=== PATIENT | female | born 1970 | race Caucasian/White ===

== ENCOUNTER 2022-11-22 08:09 | Outpatient (AMB) | payer BC, SELFPAY ==
--- NOTE | 2022-11-22 08:16 | A.OFFVIS_ITS ---
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 Required: No Allergies amoxicillin [Augmentin] Allergy (Unknown, Verified 11/30/15 00:00) hives clavulanic acid [Augmentin] Allergy (Unknown, Verified 11/30/15 00:00) hives codeine Allergy (Unknown, Verified 11/30/15 00:00) vomiting doxicycline Adverse Reaction (Intermediate, Uncoded 11/22/22 08:17) vomiting Medication List - Last Reconciled 11/22/22 by Isabela Turcios MD atenolol-chlorthalidone 50-25 mg 1 tab PO DAILY betamethasone dipropionate 0.05% 1 appl topical BID cholecalciferol (vitamin D3) 250 mcg PO .once a month duloxetine 60 mg PO DAILY ibuprofen 800 mg PO TID lorazepam 0.5 mg PO DAILY PRN meloxicam 15 mg PO DAILY omeprazole 20 mg PO DAILY PRN vitamin B complex (B Complex-Vitamin B12 tablet) 1 tab PO DAILY zolpidem ER 12.5 mg PO BEDTIME PRN HPI HPI Comments History of Present Illness Details 52y/o right handed female comes for eval uation of pain and weakness in neck,shoulders, bilateral upper extremities.she has h/o psoriatic arthritis and has been having on and off joint pains for over 30 years but for the pats 18 months she has noticed increased weakness and pain in her UE and shoulders. 18 months she started having numbness and tingling in her fingers more at night and when she woke up in the morning.she denies any shooting pains form the neck down.It was initially in her left hand but now bilateral. she denies back pain or LE weakness. she denies any urinary incontinence of balance issues. she has poor sleep, has a diagnosis of sleep apnea , tried on CPAP- in 2017. she could not tolerate CPAP so she stopped. she has gained 30-40 lbs in the past 18 mths. she has loud snoring, frequent arousals,witnessed apneas. [facility] Medical History Hypersomnia Snoring Cervical spondylosis Numbness and tingling in both hands Weakness Obesity (BMI 30-39.9) HTN (hypertension) Psoriatic arthritis Psoriasis Obstructive sleep apnea GERD (gastroesophageal reflux disease) Smoker Family History Mother COPD (chronic obstructive pulmonary disease) Diabetes Heart disease Father Diabetes Pulmonary fibrosis Social History Alcohol intake: current Patient Tobacco Use Status: Current everyday Tobacco user Review of Systems Const Reports daytime sleepiness, Reports difficulty sleeping, Reports snoring and Reports weight gain ENT Reports neck pain Resp Reports snoring Musc Reports arthralgias, Reports muscle weakness, Reports neck pain, Reports numbness, Reports stiffness and Reports tingling Neuro Reports numbness and Reports tingling Psych Reports no additional complaints Physical Exam Vital Signs: Last Vital Signs Pulse 75 11/22/22 08:26 BP 110/76 11/22/22 08:26 Pulse Ox 97 11/22/22 08:26 Oxygen Delivery Method Room Air 11/22/22 08:26 BMI result Body Mass Index 47.7 Const General: cooperative Nutritional Appearance: obese Orientation/consciousness: patient oriented x3 Eyes Pupils: Equal, round and reactive pupils present Neuro Other: had difficulty with mitch hand grasp , weakness of proximal UE General: patient oriented x3 and moves all extremities Cranial nerves: Yes Facial sensation intact/muscles of mastication intact, Yes Equal, round and reactive pupils present, Yes Bilaterally intact EOM present, Yes Nystagmus not present, Yes Normal facial strength present, Yes Midline tongue present and Yes Symmetric palate elevation present Cognition (Neuro): normal cognition Gait exam (Neuro): Normal gait present Motor exam (neuro): Normal motor muscle tone present throughout Deep tendon reflexes (DTR's): Right triceps reflex intensity grade: 3+, Left triceps reflex intensity grade: 3+, Rt Biceps (C5, C6): 3+, Left biceps reflex intensity grade: 3+, Right brachioradialis reflex intensity grade: 3+, Left brachioradialis reflex intensity grade: 3+, Right patellar reflex intensity grade: 3+ and Left patellar reflex intensity grade: 3+ Coordination: [id number]-[id number] test normal Psych Appearance: grossly normal Assessment & Plan Assessment & Plan (1) Numbness and tingling in both hands: Code(s): R20.0 - Anesthesia of skin; R20.2 - Paresthesia of skin (2) Weakness: Code(s): R53.1 - Weakness (3) Cervical spondylosis: Code(s): M47.812 - Spondylosis without myelopathy or radiculopathy, cervical region (4) Snoring: Code(s): R06.83 - Snoring Plan EMG NCS mitch hands to r/o compression neuropathy C spine MRI Sleep study Rheumatology evaluation OT for hands suggested wrist splints. Orders: Orders PT Evaluation and Treatment Today R53.1 - Weakness OT Evaluation and Treatment Today R53.1 - Weakness NE electromyogram (EMG) Today R20.0 - Anesthesia of skin, R20.2 - Paresthesia of skin MR cervical spine wo con Today M47.812 - Spondylosis without myelopathy or radiculopathy, cervical region RT PSG in-lab sleep study Today G47.10 - Hypersomnia, unspecified, R06.83 - Snoring Referrals Rheumatology Referral L40.50 - Arthropathic psoriasis, unspecified Coding Level of Care Code New Pt Level 4 (66548) Diagnoses Numbness and tingling in both hands R20.0; R20.2 Weakness R53.1 Cervical spondylosis M47.812 Snoring R06.83
[2022-11-22 08:26] VITALS: BP 110/76; PULSE 75; O2SAT 97; BMI 47.7
== END 2022-11-22 08:49 | disposition home or self-care (01) ==
PROVIDERS: Visit Provider Psychiatry & Neurology Neurology
DX: R20.0 Anesthesia of skin (principal); R20.2 Paresthesia of skin; R53.1 Weakness; M47.812 Spondylosis without myelopathy or radiculopathy, cervical region; R06.83 Snoring
CPT/HCPCS: 99204

== ENCOUNTER → 2022-11-22 08:09 | Outpatient (BNVA) | payer BC, SELFPAY | PROVIDERS: Visit Provider Psychiatry & Neurology Neurology ==

== ENCOUNTER 2022-12-15 08:04 | Outpatient (REF) | payer BC, SELFPAY ==
--- NOTE | 2022-12-15 08:08 | EMG_ITS ---
Bilateral median and ulnar motor and sensory studies were performed. Bilateral radial and sensory studies were performed and paraspinal muscles were tested with a needle. IMPRESSION: 1. Yuim-tb-fiehglam bilateral median neuropathy across carpal tunnel. 2. Bilateral radial sensory neuropathy. MD DIXON Trejo/LIZZETH / [id number]
== END 2022-12-15 08:05 | disposition home or self-care (01) ==
LOC: HO.NEURO 08:04
PROVIDERS: PCP Internal Medicine; Visit Provider Psychiatry & Neurology Neurology
DX: R20.0 Anesthesia of skin (principal); R20.2 Paresthesia of skin
CPT/HCPCS: 95886; 95911

== ENCOUNTER 2023-01-02 18:21 | Outpatient (REF) | payer BC, SELFPAY ==
--- NOTE | ~2023-01-02 | MR_ITS ---
EXAMINATION: MR CERVICAL SPINE WITHOUT CONTRAST CLINICAL INFORMATION: Spondylosis, bilateral arm weakness, neck pain COMPARISON: None available. TECHNIQUE: MRI of the cervical spine was obtained using routine sequences without contrast. FINDINGS: Feeding of the normal cervical lordosis. Trace anterolisthesis of C2-C3 and C3-C4 with grade 1 anterolisthesis of C7-T1, T1-T2, and T2-T3. Cervical vertebral body heights are maintained. Mild superior endplate height loss at T2 and T3. No expansile or destructive osseous lesion. Focal dilatation of the central canal at the level of C6-C7 measuring up to 2 mm in maximal diameter. C2-C3: Facet arthropathy. The spinal canal and neural foramen are patent. C3-C4: Mild uncovertebral spurring without significant spinal canal or neural foraminal stenosis. C4-C5: Disc osteophyte complex indents the ventral thecal sac with mild canal stenosis. Uncovertebral and facet arthropathy contributes to moderate right and mild left neural foraminal stenosis. C5-C6: Disc osteophyte complex indents the ventral thecal sac without significant associated spinal canal stenosis. There is mild to moderate bilateral neural foraminal stenosis secondary to uncovertebral and facet arthropathy C6-C7: Small disc osteophyte complex without significant spinal canal stenosis. The neural foramen remain patent. C7-T1: No significant spinal canal or neural foraminal stenosis. Facet arthropathy. MR/MR cervical spine wo con IMPRESSION: Straightening of the normal cervical lordosis with multilevel degenerative changes as described above. There is up to moderate right neural foraminal stenosis at C4-C5. No high-grade spinal canal stenosis. Short segment syrinx at the level of C6-C7. Attention on follow-up is recommended to monitor stability.
== END 2023-01-02 18:22 | disposition home or self-care (01) ==
LOC: HO.MRI 18:21
PROVIDERS: PCP Internal Medicine; Visit Provider Psychiatry & Neurology Neurology
DX: M47.812 Spondylosis without myelopathy or radiculopathy, cervical region (principal)
CPT/HCPCS: 72141

== ENCOUNTER 2023-01-11 14:29 | Outpatient (AMB) | payer BC, SELFPAY ==
--- NOTE | 2023-01-11 14:30 | MHC.OFFVIS ---
Intake Vital Signs 01/11/23 14:32 Height 5 ft 3 in Weight 274 lb BMI 48.5 BP 124/78 Blood Pressure Location Lt brachial Position Sitting Respiration 16 Pulse 70 Pulse Source Pulse Oximeter Pulse Oximetry (%) 95 Oxygen Delivery Method Room Air Intake Visit Reasons: 7 wks f/u Chronic Pain/Neuropata - Conf Intake Note: Pt presents to the office for a 2 month follow for neuropathy. She reports no improvement since her last visit. She c/o constant pain, worse at night. She reports it used to go away, but now its flared all day long. 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 MRI c spine shows multilevel deg changes and a small syrinx but no canal stenosis EMG showed mitch median neuropathy . mitch radial nerve sensory neuropathy . she did not have sleep study - home sleep test was recommended - she declined. Previous history-she has h/o psoriatic arthritis and has been having on and off joint pains for over 30 years but for the past 18 months she has noticed increased weakness and pain in her UE and shoulders. 18 months she started having numbness and tingling in her fingers more at night and when she woke up in the morning.she denies any shooting pains form the neck down.It was initially in her left hand but now bilateral. she denies back pain or LE weakness. she denies any urinary incontinence of balance issues. she has poor sleep, has a diagnosis of sleep apnea , tried on CPAP- in 2017. she could not tolerate CPAP so she stopped. she has gained 30-40 lbs in the past 18 mths. she has loud snoring, frequent arousals,witnessed apneas. PFSH Medical History Carpal tunnel syndrome Hypersomnia Snoring Cervical spondylosis Numbness and tingling in both hands Weakness Obesity (BMI 30-39.9) HTN (hypertension) Psoriatic arthritis Psoriasis Obstructive sleep apnea GERD (gastroesophageal reflux disease) Smoker Family History Mother COPD (chronic obstructive pulmonary disease) Diabetes Heart disease Father Diabetes Pulmonary fibrosis Social History Alcohol intake: current Patient Tobacco Use Status: Current everyday Tobacco user Physical Exam Vital Signs: Last Vital Signs Pulse 70 01/11/23 14:32 Resp 16 01/11/23 14:32 BP 124/78 01/11/23 14:32 Pulse Ox 95 01/11/23 14:32 Oxygen Delivery Method Room Air 01/11/23 14:32 BMI result Body Mass Index 48.5 Const General: cooperative Nutritional Appearance: obese Orientation/consciousness: patient oriented x3 Eyes Pupils: Equal, round and reactive pupils present Neuro Other: had difficulty with mitch hand grasp , weakness of proximal UE General: patient oriented x3 and moves all extremities Cranial nerves: Yes Facial sensation intact/muscles of mastication intact, Yes Equal, round and reactive pupils present, Yes Bilaterally intact EOM present, Yes Nystagmus not present, Yes Normal facial strength present, Yes Midline tongue present and Yes Symmetric palate elevation present Cognition (Neuro): normal cognition Gait exam (Neuro): Normal gait present Motor exam (neuro): Normal motor muscle tone present throughout Coordination: yoobxf-as-fgtm test normal Psych Appearance: grossly normal Assessment & Plan Assessment & Plan (1) Carpal tunnel syndrome: Code(s): G56.00 - Carpal tunnel syndrome, unspecified upper limb (2) Cervical spondylosis: Code(s): M47.812 - Spondylosis without myelopathy or radiculopathy, cervical region (3) Obstructive sleep apnea: Comment: declines Home sleep test, did not tolerate CPAP , not a candidate for INSPIRE Code(s): G47.33 - Obstructive sleep apnea (adult) (pediatric) Plan I will refer her to Hand surgery for CTS management. Rheumatology follow up. Pain management Decline sleep study Orders: Referrals Hand Surgery Referral G56.00 - Carpal tunnel syndrome, unspecified upper limb Pain Management Referral L40.50 - Arthropathic psoriasis, unspecified, M47.812 - Spondylosis without myelopathy or radiculopathy, cervical region Coding Level of Care Code Est Pt Level 4 (47174) Diagnoses Carpal tunnel syndrome G56.00 Cervical spondylosis M47.812 Obstructive sleep apnea G47.33
[2023-01-11 14:32] VITALS: BP 124/78; PULSE 70; RESP 16; O2SAT 95; BMI 48.5
== END 2023-01-11 15:20 | disposition home or self-care (01) ==
PROVIDERS: PCP Internal Medicine; Visit Provider Psychiatry & Neurology Neurology
DX: G56.00 Carpal tunnel syndrome, unspecified upper limb (principal); M47.812 Spondylosis without myelopathy or radiculopathy, cervical region; G47.33 Obstructive sleep apnea (adult) (pediatric)
CPT/HCPCS: 99214

== ENCOUNTER → 2023-01-11 14:29 | Outpatient (BNVA) | payer BC, SELFPAY | PROVIDERS: PCP Internal Medicine; Visit Provider Psychiatry & Neurology Neurology ==

== ENCOUNTER 2023-01-12 10:58 | Outpatient (AMB) | payer BC, SELFPAY ==
--- NOTE | 2023-01-12 11:23 | MHC.OFFVIS ---
Intake Vital Signs 01/12/23 11:24 Height 5 ft 3 in Weight 271 lb 2.697 oz BMI 48.0 BP 122/70 Blood Pressure Location Rt brachial Position Sitting Pulse 76 Pulse Source Pulse Oximeter Temp 97.2 F Temp Source Skin Pulse Oximetry (%) 97 Intake Visit Reasons: Psoriasis Intake Note: New pt presents today for PsA consult, referred by Neurology. Previolsy seen by Peri [place]. C/o pain, stiffness and weakness in upper extremities and shoulder. Following with Dr Ortega at [place] [facility]. Referrals in place for pain mgmt, hand surgeon, PT and OT. 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 Accompanied by: Self / Same As Patient Allergies amoxicillin [Augmentin] Allergy (Unknown, Verified 01/12/23 11:33) hives clavulanic acid [Augmentin] Allergy (Unknown, Verified 01/12/23 11:33) hives codeine Allergy (Unknown, Verified 01/12/23 11:33) vomiting doxicycline Adverse Reaction (Intermediate, Uncoded 01/12/23 11:33) vomiting Medication List - Last Reconciled 01/12/23 by Vi Wiley MD atenolol-chlorthalidone 50-25 mg 1 tab PO DAILY betamethasone dipropionate 0.05% 1 appl topical BID PRN cholecalciferol (vitamin D3) 250 mcg PO .once a month duloxetine 60 mg PO DAILY guselkumab (Tremfya) mg subcut ibuprofen 800 mg PO TID levothyroxine 50 mcg PO DAILY lorazepam 0.5 mg PO DAILY PRN meloxicam 15 mg PO DAILY omeprazole 20 mg PO DAILY PRN prednisone 10 mg PO DAILY vitamin B complex (B Complex-Vitamin B12 tablet) 1 tab PO DAILY zolpidem ER 12.5 mg PO BEDTIME PRN HPI HPI Comments History of Present Illness Details This is a 52-year-old female who presents for evaluation of psoriasis and psoriatic arthritis. Symptoms started around age 21. Please see below. If most recently patient was started on tophi. She received the 2 loading doses. She does not believe that it is effective. She is also on prednisone 10 mg daily. She states that she is miserable right now. She states that her disease is most severe. She is having significant pain and swelling of her hands, knuckles, wrists, elbows and shoulders. States that her psoriasis is fairly well controlled. She has some patches on her buttocks. History per Dr. Forbes: Initially started having joint pain after parvo B19 virus at age 21.? She was evaluated at [facility].? She reported having pain and swelling of the hands.? She was treated with methotrexate but she continued to have pain in the knees and ankles. In she started to have pain secondary to left trochanteric bursitis.? She had no evidence of sacroiliitis but was noted to have scoliosis. She entered a study for psoriasis.? She was on methotrexate as a monotherapy which was ineffective as monotherapy.? She took Enbrel for about 5-6 years which helped the psoriasis and the joint pain. She took Humira briefly but she denied having any benefit from this medication.? She did not take methotrexate with Enbrel or Humira.? She was on Stelara 45 mg subQ every 3 months which was effective for a few years.? It was discontinued in 2018 Started on Cosentyx which helped the psoriasis but only modestly effective in the arthritis. She had a colonoscopy in 2018 and patient stated that there was no evidence of inflammatory bowel disease. She was on and off Cosentyx from 2018 to September 2019 She stated that she took methotrexate in the past but felt ill from taking it and she did not want to resume it She never took Taltz, Simponi Aria, Cimzia, scar easy or Tremfya.? She never took Otezla or ALEIDA inhibitors PFSH Medical History Carpal tunnel syndrome Hypersomnia Snoring Cervical spondylosis Numbness and tingling in both hands Weakness Obesity (BMI 30-39.9) HTN (hypertension) Psoriatic arthritis Psoriasis Obstructive sleep apnea GERD (gastroesophageal reflux disease) Smoker Family History Mother COPD (chronic obstructive pulmonary disease) Diabetes Heart disease Father Diabetes Pulmonary fibrosis Psoriasis Brother Psoriasis Social History Household Members: Spouse Alcohol intake: current Patient Tobacco Use Status: Current everyday Tobacco user Female Reproductive History Menstrual Total pregnancies: 0 Review of Systems Const Reports fatigue, Reports weakness and Reports weight gain Eyes Reports dry eyes Card Reports chest pain GI Reports heartburn Musc Reports arthralgias, Reports joint swelling, Reports limited range of motion and Reports stiffness Skin/Breast Reports rash Neuro Reports weakness Psych Reports abnormal sleep pattern, Reports anxiety and Reports depression Endo Reports fatigue Physical Exam Vital Signs: Last Vital Signs Temp 97.2 F 01/12/23 11:24 Pulse 76 01/12/23 11:24 BP 122/70 01/12/23 11:24 Pulse Ox 97 01/12/23 11:24 BMI result Body Mass Index 48.0 Const General: cooperative, healthy appearing and comfortable Nutritional Appearance: obese morbidly obese Orientation/consciousness: patient oriented x3 Limitations: no limitations HEENT Head: Yes normocephalic and Yes atraumatic Mouth: moist mucous membranes Resp Effort & Inspection: normal respiratory effort and able to speak in complete sentences Auscultation: clear to auscultation bilaterally Cardio Rate: regular rate Skin Other: Few psoriatic patches on her buttocks Neuro General: patient oriented x3 Extrem Other: Oumar test 10-15 cm Diffuse swelling of MCPs and fingers bilaterally Diffuse MCP tenderness Bilateral tender elbows Diffuse fibromyalgia tender points Negative Fabere test bilaterally Negative straight leg raise test bilaterally Results Reviewed Results Reviewed: Labs 12/2018? ESR 13, uric acid 6.2? Rheumatoid factor/MARGE negative? Labs 02/2019 ESR 13, CRP 0.54? LFTs normal? Labs 11/2021? ESR 52? CRP 3.8? Right knee x-ray 06/2018 degenerative changes most notable affecting lateral compartment.? Moderate joint effusion Bilateral ankle and feet x-rays 07/2018.? There are small inferior calcaneal osteophytes bilaterally.? There is narrowing of the right 5th metatarsal phalangeal joint.? All told fracture of the head of the left 5th metatarsal.? There is no radiographic evidence of psoriatic arthritis.? X-rays of the hands wrists normal examination.? Specifically there is no radiographic evidence of psoriatic arthritis. Labs 07/2018 CBC normal? ESR 18, CRP 0 point aches 6.? Complements normal.? Quantitative immunoglobulins normal, antithyroglobulin and antithyroid peroxidase antibodies negative.? Hepatitis-B surface antigen negative hepatitis-B surface antibody positive, Lyme screen negative, serum immunofixation normal HLA B27 negative Assessment & Plan Assessment & Plan (1) Psoriatic arthritis: Comment: dx around 2001 MTX ineffective and caused side effects Enbrel effective for 5-6 years then lost efficacy Humira ineffective Cosentyx effective for skin not joints Stelara effective for a few years Tremfya started 09/2022 ineffective Code(s): L40.50 - Arthropathic psoriasis, unspecified Plan: This is a 52-year-old female who presents for evaluation of psoriasis and psoriatic arthritis. Patient tried and failed multiple conventional and biologic DMARDs. She is currently on Tremfya. Will order labs to evaluate disease activity. Check x-rays of involved joints. Follow-up in 3 weeks. Will discuss DMARDs. Patient likely would need combination of a conventional DMARDs such and a biologic DMARD such as Skyrizi. ALEIDA inhibitors will be discussed Plan I spent 65 minutes reviewing patient's chart, evaluating patient, ordering diagnostic workup, counseling patient and documenting in the chart Orders: Orders Comprehensive Met. Panel Today L40.50 - Arthropathic psoriasis, unspecified C Reactive Protein Today L40.50 - Arthropathic psoriasis, unspecified Immunofixation Pnl, Serum Today L40.50 - Arthropathic psoriasis, unspecified Protein Electrophoresis, Serum Today L40.50 - Arthropathic psoriasis, unspecified T Spot TB Today Z11.7 - Encounter for testing for latent tuberculosis infection Erythrocyte Sedimentation Rate Today L40.50 - Arthropathic psoriasis, unspecified XR hand wrist LT Today L40.50 - Arthropathic psoriasis, unspecified XR shoulder RT min 2V Today L40.50 - Arthropathic psoriasis, unspecified XR thoracic spine 3V Today L40.50 - Arthropathic psoriasis, unspecified XR foot LT min 3V Today L40.50 - Arthropathic psoriasis, unspecified XR foot RT min 3V Today L40.50 - Arthropathic psoriasis, unspecified XR shoulder LT min 2V Today L40.50 - Arthropathic psoriasis, unspecified Hemoglobin A1c Today E66.9 - Obesity, unspecified Lipid Panel Today E66.9 - Obesity, unspecified Complete Blood Count Auto Diff Today L40.50 - Arthropathic psoriasis, unspecified Hepatitis A,B,C Profile Today Z11.59 - Encounter for screening for other viral diseases XR ankle LT min 3V Today L40.50 - Arthropathic psoriasis, unspecified XR ankle RT min 3V Today L40.50 - Arthropathic psoriasis, unspecified XR hand wrist RT Today L40.50 - Arthropathic psoriasis, unspecified Cyclic Citrullinated Peptide Today R20.0 - Anesthesia of skin, R20.2 - Paresthesia of skin Coding Level of Care Code New Pt Level 5 (12930) Diagnoses Psoriatic arthritis L40.50
[2023-01-12 11:24] VITALS: BP 122/70; PULSE 76; TEMP 36.2; O2SAT 97; BMI 48.0
== END 2023-01-12 12:26 | disposition home or self-care (01) ==
PROVIDERS: PCP Internal Medicine; Visit Provider Student in an Organized Health Care Education/Training Program
DX: L40.50 Arthropathic psoriasis, unspecified (principal)
CPT/HCPCS: 99205

== ENCOUNTER 2023-01-12 10:58 | Outpatient (REF) | payer BC, SELFPAY | END 2023-01-12 10:59 | disposition home or self-care (01) | LOC: HO.LAB 10:58 | PROVIDERS: PCP Internal Medicine; Visit Provider Student in an Organized Health Care Education/Training Program | DX: Z13.89 Encounter for screening for other disorder (principal) ==